=== PATIENT | female | born 1985 | race American Indian/Alaskan Native ===

== ENCOUNTER 2021-06-19 12:17 | Emergency (ER) | payer SELFPAY ==
[2021-06-19 13:30] LABS: Basophils # (Auto) 0.1 K/mm3 (0.0-0.1); Basophils % (Auto) 0.6 % (0.0-1.8); Eosinophils # (Auto) 0.1 K/mm3 (0.0-0.4); Eosinophils % (Auto) 1.3 % (0.0-4.3); Hematocrit 27.5 % (30.3-42.9); Hemoglobin 8.9 gm/dl (10.1-14.3); Lymphocytes # (Auto) 1.9 K/mm3 (1.2-5.4); Lymphocytes % (Auto) 23.2 % (13.4-35.0); Mean Corpuscular HGB Conc 33 % (30-34); Mean Corpuscular Volume 93 fl (79-97); Monocytes # (Auto) 0.5 K/mm3 (0.0-0.8); Monocytes % (Auto) 6.2 % (0.0-7.3); Platelet Count 269 K/mm3 (140-440); Red Blood Count 2.96 M/mm3 (3.65-5.03)
[2021-06-19 13:31] LABS: Blood Urea Nitrogen 14 mg/dL (7-17); Calcium 9.8 mg/dL (8.4-10.2); Hemolysis Index 4
--- NOTE | 2021-06-19 13:31 | Emergency Department Report ---
ED Female HPI - General Chief complaint: Vaginal Bleeding Stated complaint: EXCESSIVE BLEEDING VAG Time Seen by Provider: 06/19/21 13:00 Source: patient Mode of arrival: Ambulatory Limitations: No Limitations - History of Present Illness Initial comments: 35-year-old female presents to the ER today with complaints of abnormal vaginal bleeding. Patient states that she has been bleeding abnormally for about 4 months. Patient states that she has been bleeding almost every day for the past 4 months. She states that bleeding was stopped for about 3 to 4 days, at most a week and then will come right back. Patient states that she did have an [employer] visit about 2 weeks ago during which time she had labs done as well as a Pap smear. She states that she was started on control pills, the norethindrone 2 weeks ago but she states that the bleeding got heavier than it has been 3 days ago and so she stopped taking the control pill yesterday. She states that this time around the bleeding is excessive. She states that she has change about 20 pads in the past 3 to 4 days. She reports passage of clots and lower abdominal pressure. Patient states that prior to the onset of this abnormal bleeding 4 months ago she was having regular periods and was never on any control. She never had to have a blood transfusion in the past. She denies any history of bleeding or clotting disorders. She denies any other significant past history. She reports no dizziness, weakness, near syncope or syncopal episodes. Complaint: vaginal bleeding -: Sudden, month(s) (4) - Related Data Previous Rx's Medication Instructions Recorded Last Taken Type Ferrous Sulfate [Ferrous Sulfate 324 mg PO DAILY #30 tablet. 06/19/21 Unknown Rx 324 MG] medroxyPROGESTERone ACETATE 10 mg PO DAILY #10 tablet 06/19/21 Unknown Rx [Provera] Allergies Allergy/AdvReac Type Severity Reaction Status Date / Time No Known Allergies Allergy Unverified 06/19/21 12:38 ED Review of Systems ROS: Stated complaint: EXCESSIVE BLEEDING VAG Other details as noted in HPI Comment: All other systems reviewed and negative Constitutional: denies: chills, fever Eyes: denies: eye pain, eye discharge, vision change ENT: denies: ear pain, throat pain Respiratory: denies: cough, shortness of breath, wheezing Cardiovascular: denies: chest pain, palpitations, dyspnea on exertion, edema, syncope, paroxysmal nocturnal dyspnea Gastrointestinal: abdominal pain. denies: nausea, diarrhea, constipation, hematemesis, melena, hematochezia Genitourinary: denies: urgency, dysuria, frequency, hematuria, discharge, abnormal menses, dyspareunia Musculoskeletal: denies: back pain, joint swelling, arthralgia Skin: denies: rash, lesions, change in color, change in hair/nails, pruritus Neurological: denies: headache, weakness, paresthesias, abnormal gait, vertigo Psychiatric: denies: anxiety, depression, auditory hallucinations, visual hallucinations, homicidal thoughts, suicidal thoughts Hematological/Lymphatic: denies: easy bleeding, easy bruising, swollen glands ED Past Medical Hx - Past Medical History Previous Medical History?: Yes Hx Hypertension: Yes - Surgical History Past Surgical History?: No - Medications Home Medications: Home Medications Medication Instructions Recorded Confirmed Last Taken Type Ferrous Sulfate [Ferrous Sulfate 324 mg PO DAILY #30 tablet. 06/19/21 Unknown Rx 324 MG] medroxyPROGESTERone ACETATE 10 mg PO DAILY #10 tablet 06/19/21 Unknown Rx [Provera] ED Physical Exam - General Limitations: No Limitations ED Course Vital Signs 06/19/21 06/19/21 12:37 15:57 Temperature 98.9 F Pulse Rate 133 H 98 H Respiratory 16 14 Rate Blood Pressure 131/94 Blood Pressure 105/74 [Left] O2 Sat by Pulse 100 100 Oximetry ED Medical Decision Making - Lab Data Result diagrams: 06/19/21 13:00 06/19/21 13:00 - Medical Decision Making labs reviewed -- CBC shows that patient is anemic with H/H of 8.9/27.5 but otherwise unremarkable. CMP unremarkable and HCG negative. Pt was tachy with HR of 133 on arrival but improved with some IV fluids. Remaining VS are stable. Pt currently resting comfortable and not in any acute distress. She has non surgical abd exam. She is well appearing and not toxic. Discussed lab results with patient. She will be started on ferrous sulfate. Will try provera (she does not smoke and no hx of DVT or PE) but recommend keep her appointment with her OBGYN for pelvic US for next week. Patient expressed understanding of all instructions and agreed with plan. Pt was stable at time of discharge. - Differential Diagnosis severe anemia requiring transfusion, miscarriage Critical care attestation.: If time is entered above; I have spent that time in minutes in the direct care of this critically ill patient, excluding procedure time. ED Disposition Clinical Impression: Abnormal vaginal bleeding, Anemia Disposition: HOME / SELF CARE / HOMELESS Is pt being admited?: No Does the pt Need Aspirin: No Condition: Stable Instructions: Abnormal Uterine Bleeding, Iron Deficiency Anemia, Pediatric Additional Instructions: I recommend that you take the ferrous sulfate as prescribed. I recommend that you take the progesterone as prescribed. Keep your appointment with your OBGYN for pelvic US on . You can take tylenol and or motrin as needed for pain. Return to ED if worse. Prescriptions: Ferrous Sulfate [Ferrous Sulfate 324 MG] 324 mg PO DAILY #30 tablet. medroxyPROGESTERone ACETATE [Provera] 10 mg PO DAILY #10 tablet Referrals: PRIMARY CARE, [Primary Care Provider] - 3-5 Days Forms: Work/School Release Form(ED) Time of Disposition: 16:06
[2021-06-19] MEDS ORDERED: ACETAMINOPHEN 325 MG TAB PO ONE (13:38)
[2021-06-19 13:40] LABS: INR 1.23 (0.87-1.13)
[2021-06-19 13:41] LABS: Partial Thromboplastin Time 27.8 Sec. (24.2-36.6)
[2021-06-19 13:50] LABS: BUN/Creatinine Ratio 20
[2021-06-19] MEDS ORDERED: SODIUM CHLORIDE 0.9% 1000 ML 1,000 ML IV ONE (14:42)
[2021-06-19 15:58] VITALS: BP 105/74
== END 2021-06-19 16:37 | disposition home or self-care (01) ==
LOC: ED 12:17
DX: N93.9 Abnormal uterine and vaginal bleeding, unspecified (principal); D64.9 Anemia, unspecified; I10 Essential (primary) hypertension; Z79.899 Other long term (current) drug therapy
CPT/HCPCS: 36415; 80048; 84703; 85025; 85610; 85730; 96360; 99283; J7030